=== PATIENT | male | born 1970 | race Caucasian/White ===

== ENCOUNTER 2020-11-12 11:44 | Emergency (ER) | payer BC ==
[~2020-11-12] VITALS: Ht 170.2 cm; Wt 79.0 kg
[2020-11-12] MEDS ORDERED: LIDOCAINE HCL/PF 1% 10 MG/ML 5ML VIAL IJ ONE (12:15)
[2020-11-12] MEDS ORDERED: ACETAMINOPHEN WITH CODEINE 300/30MG TABLET PO ONE (12:15)
[2020-11-12] MEDS ORDERED: TETANUS, DIPHTHERIA, PERTUSSIS VAC/PF 0.5ML (>7YR OLD) IM ONE (12:15)
[2020-11-12] MEDS ORDERED: BACITRACIN ZINC OINT UDPKT TOP ONE (12:15)
[2020-11-12] MEDS ORDERED: IBUP-2028 MT (13:51)
[2020-11-12] MEDS ORDERED: T3 PO (13:51)
[2020-11-12 14:11] VITALS: BP 121/73
== END 2020-11-12 14:12 | disposition home or self-care (01) ==
LOC: ER 11:44
DX: S61.213A Laceration without foreign body of left middle finger without damage to nail, initial encounter (principal); S61.218A Laceration without foreign body of other finger without damage to nail, initial encounter; W23.0XXA Caught, crushed, jammed, or pinched between moving objects, initial encounter; Y93.89 Activity, other specified; Y92.89 Other specified places as the place of occurrence of the external cause; Y99.8 Other external cause status
CPT/HCPCS: 12001; 73130; 90471; 90715; 99283; J3490

== ENCOUNTER 2020-11-14 13:32 | Emergency (ER) | payer BC ==
[~2020-11-14] VITALS: Ht 162.6 cm; Wt 79.0 kg
[~2020-11-14 13:32] MED LIST: IBUP-2028 MT; T3 PO
[2020-11-14 14:34] VITALS: BP 123/78
== END 2020-11-14 15:12 | disposition home or self-care (01) ==
LOC: ER 14:26
DX: S61.213D Laceration without foreign body of left middle finger without damage to nail, subsequent encounter (principal); X58.XXXD Exposure to other specified factors, subsequent encounter
CPT/HCPCS: 99281